=== PATIENT | female | born 1995 | race African-American/Black ===

== ENCOUNTER 2017-02-17 10:49 | Emergency (ER) | payer MEDICAID ==
[~2017-02-17] VITALS: Ht 165.1 cm; Wt 67.0 kg
[2017-02-17 11:04] VITALS: BP 137/74
== END 2017-02-17 18:31 | disposition left against medical advice (07) ==
LOC: ER 17:19
DX: R30.0 Dysuria (principal); F17.200 Nicotine dependence, unspecified, uncomplicated; Z53.21 Procedure and treatment not carried out due to patient leaving prior to being seen by health care provider